=== PATIENT | female | born 2000 | race Caucasian/White ===

== ENCOUNTER 2021-05-06 18:20 | Emergency (ER) | payer OTHER ==
[2021-05-06 18:30] VITALS: BP 157/96; PULSE 116; RESP 18; TEMP 98.1
--- NOTE | 2021-05-06 18:40 | ED ---
General Adult HPI - General Chief complaint: Burn/Smoke Inhalation Stated complaint: IHS-Burned Rt Foot Time Seen by Provider: 05/06/21 18:30 Source: patient, RN notes reviewed, old records reviewed Mode of arrival: ambulatory Limitations: no limitations - History of Present Illness Initial comments: This is a 21-year-old female presents emergency Department complaining of a burn to the dorsum surface of her foot and she also states she has a small blister there. Patient states she spilled some hot soup at work on her foot. Patient states there is no other area of burn except for the area she showed me which is approximately 1 cm in diameter. Patient denies wanting any pain medications. Patient has no other complaints at this time. She states she doesn't want to be here but work made her come. - Related Data Home Medications Medication Instructions Recorded Confirmed Albuterol Inhaler (Mhu) [Ventolin 2 puff INHALATION Q4HR PRN 05/08/14 09/25/15 Inhaler] Montelukast Chew [Singulair] 5 mg PO DAILY 05/08/14 09/25/15 Allergies Allergy/AdvReac Type Severity Reaction Status Date / Time No Known Allergies Allergy Verified 05/06/21 18:28 Review of Systems ROS Statement: Those systems with pertinent positive or pertinent negative responses have been documented in the HPI. ROS Other: All systems not noted in ROS Statement are negative. Past Medical History Past Medical History: Asthma History of Any Multi-Drug Resistant Organisms: None Reported Past Surgical History: No Surgical Hx Reported Additional Past Surgical History / Comment(s): [place] teeth Past Psychological History: No Psychological Hx Reported Smoking Status: Never smoker Past Alcohol Use History: None Reported Past Drug Use History: None Reported General Exam - General Exam Comments Initial Comments: GENERAL Patient is well-developed and well-nourished. Patient is in mild distress. EYES Patient's pupils are equal and round. Extraocular motion is intact SKIN Patient has a small blister between the second and third toe with some surrounding erythema the blister measures about 1 cm in diameter. NEURO The patient is alert and oriented 3 PYSCH Patient has normal interpersonal interactions. MUSCULOSKELETAL All 4 extremities and full range of motion Limitations: no limitations Course Vital Signs 05/06/21 18:29 Temperature 98.1 F Pulse Rate 116 H Respiratory 18 Rate Blood Pressure 157/96 O2 Sat by Pulse 98 Oximetry Disposition Clinical Impression: Burn, foot, second degree Disposition: HOME SELF-CARE Condition: Good Instructions (If sedation given, give patient instructions): Second Degree Burn (ED) Additional Instructions: If the blister ruptures the patient complains some antibacterial ointment on the open wound. Patient take Motrin when necessary for pain Is patient prescribed a controlled substance at d/c from ED?: No Referrals: Cuong Lema Jr, [Primary Care Provider] - 1-2 days Time of Disposition: 18:40
== END 2021-05-06 18:51 | disposition home or self-care (01) ==
LOC: EC 18:20
DX: T25.221A Burn of second degree of right foot, initial encounter (principal); J45.909 Unspecified asthma, uncomplicated; Z79.51 Long term (current) use of inhaled steroids; X10.0XXA Contact with hot drinks, initial encounter
CPT/HCPCS: 99283

== ENCOUNTER 2023-03-27 09:41 | Outpatient (CLI) | payer SELFPAY ==
[2023-03-27 11:18] VITALS: BP 140/65; PULSE 115; RESP 16; TEMP 98.4
--- NOTE | 2023-04-13 18:11 | P.MSEPDOC ---
Presenting Problems - Arrival Data Date of Arrival on Unit: 03/27/23 Time of Arrival on Unit: 09:41 Mode of Transport: Ambulatory - Complaint OB-Reason for Admission/Chief Complaint: Rule Out SROM Comment: started leaking watery green fluid in night . conserned. didnt wear pad in none seen Medical History - Information : 1 Para: 0 Term: 0 : 0 Abortions: Spontaneous or Elective: 0 Number of Living Children: 0 - Gestational Age Gestational Age by OSMANI (wks/days): 21 Weeks and 6 Days Review of Systems - Review of Systems Constitutional: No problems Breast: No problems ENT: No problems Cardiovascular: No problems Respiratory: No problems Gastrointestinal: No problems Genitourinary: No problems Musculoskeletal: No problems Neurological: No problems Skin: No problems Vital Signs - Temperature Temperature: 98.4 F Temperature Source: Temporal Artery Scan - Pulse Right Radial Pulse Rate: 115 Pulse Assessment Method: Automatic Cuff - Respirations Respiratory Rate: 16 Oxygen Delivery Method: Room Air O2 Sat by Pulse Oximetry: 99 - Blood Pressure Right Arm Blood Pressure: 140/65 Blood Pressure Mean: 90 Blood Pressure Source: Automatic Cuff Medical Screen Scoring - Cervical Exam Membranes: Intact - Uterine Contractions Intensity: Absent Resting: Soft to palpation - Assessment - Baby A Baseline FHR: 150 Heart Rate - NICHD Category: Category I (Normal) Physician Notification - Physician Notified Physician Notified Date: 03/27/23 Physician Notified Time: 10:30 Physician: Kiarra Latif New Order Received: Yes (may discharge home with instructions and followup visit) Maternal Triage Index - Non-Urgent/Priority 4 Non-Urgent Priority 4: Yes Criteria Met for Priority 4: 21 6/7 weeks . ? srom in night. neg amnisure. no contx palpated or seen . no leaking fluid seen. denies other complications with preg. Disposition - Disposition OB Disposition: Discharge to home, Written follow up instructions reviewed Discharge Date: 03/27/23 Discharge Time: 11:00 I agree with the RN Medical Screening Exam: Yes Case reviewed; plan agreed upon as documented in EMR&OBIX.: Yes Diagnosis: RELATED CONDITIONS, UNSPECIFIED, SECOND TRIMESTER
== END 2023-03-27 11:00 | disposition home or self-care (01) ==
LOC: FBPOP 09:41
PROVIDERS: ATTEND Obstetrics & Gynecology Obstetrics
DX: O26.892 Other specified pregnancy related conditions, second trimester (principal); Z3A.21 21 weeks gestation of pregnancy
CPT/HCPCS: 99213

== ENCOUNTER → 2023-06-12 | Outpatient (CLI) | payer OTHER ==
[2023-06-12 22:25] VITALS: BP 136/63; PULSE 122; RESP 16; TEMP 98.6
--- NOTE | 2023-06-14 16:34 | P.MSEPDOC ---
Presenting Problems - Arrival Data Date of Arrival on Unit: 06/12/23 Time of Arrival on Unit: 20:07 Mode of Transport: Ambulatory - Complaint OB-Reason for Admission/Chief Complaint: Decreased Movement Comment: Patient arrived to triage with complaints of yris since 11am 06/11/23 and decreased . movement since yesterday. Patient denies bleeding, sexual intercourse, leaking of. fluid. Medical History - Information : 1 Para: 0 Term: 0 : 0 Abortions: Spontaneous or Elective: 0 Number of Living Children: 0 - Gestational Age Gestational Age by OSMANI (wks/days): 32 Weeks and 6 Days - History Comment: Patient denies Review of Systems - Review of Systems Constitutional: No problems Breast: No problems ENT: No problems Cardiovascular: No problems Respiratory: No problems Gastrointestinal: No problems Genitourinary: No problems Musculoskeletal: No problems Neurological: No problems Skin: Rash, Itching Comment: Patient has uticaria in between digits on left and right hands, patient has uticaria on both feet between digits. Vital Signs - Temperature Temperature: 98.6 F Temperature Source: Temporal Artery Scan - Pulse Pulse Oximetery Pulse Rate: 122 Pulse Assessment Method: Pulse Oximetry - Respirations Respiratory Rate: 16 Oxygen Delivery Method: Room Air O2 Sat by Pulse Oximetry: 99 - Blood Pressure Right Arm Blood Pressure: 136/63 Blood Pressure Mean: 87 Blood Pressure Source: Automatic Cuff Medical Screen Scoring - Cervical Exam Dilation (cm): 0 - Uterine Contractions Frequency From (mins): 2 Frequency To (mins): 8 Duration From (seconds): 30 Duration To (seconds): 40 Intensity: Mild Resting: Soft to palpation - Assessment - Baby A Baseline FHR: 140 Heart Rate - NICHD Category: Category I (Normal) NST: Reactive Physician Notification - Physician Notified Physician Notified Date: 06/12/23 Physician Notified Time: 20:40 Physician: Kiarra Latif New Order Received: Yes - Notification Comment Comment: Report Given To OB Care Provider: RN spoke with Dr. Latif via telephone regarding. patient, Dr. Latif aware of staus, FHR cat 1, contractions, yellow, white. discharge while RN with cervical exam. Patient treated for BV and yeast infection in. April of 2023 but didnt not finish full course of antibiotics or cream. FFN. collected but not sent. Orders to oral hydrate patient, recheck cervix in 1 hour and. send home if same and patient to call office Tuesday. Maternal Triage Index - Urgent/Priority 2 Urgent Priority 2: Yes Provider Notified: Kiarra Latif Provider Notified Time: 20:40 Criteria Met for Priority 2: Report Given To OB Care Provider: RN spoke with Dr. Latif via telephone regarding. patient, Dr. Latif aware of staus, FHR cat 1, contractions, yellow, white. discharge while RN with cervical exam. Patient treated for BV and yeast infection in. April of 2023 but didnt not finish full course of antibiotics or cream. FFN. collected but not sent. Orders to oral hydrate patient, recheck cervix in 1 hour and. send home if same and patient to call office Tuesday. Disposition - Disposition OB Disposition: Discharge to home Discharge Date: 06/12/23 Discharge Time: 21:43 I agree with the RN Medical Screening Exam: Yes Case reviewed; plan agreed upon as documented in EMR&OBIX.: Yes Diagnosis: RELATED CONDITIONS, UNSPECIFIED, THIRD TRIMESTER
== END ==
LOC: FBPOP 20:07
PROVIDERS: ATTEND Obstetrics & Gynecology Obstetrics
DX: O36.8131 Decreased fetal movements, third trimester, fetus 1 (principal); Z3A.32 32 weeks gestation of pregnancy
CPT/HCPCS: 59025; 99213

== ENCOUNTER 2023-06-21 19:14 | Outpatient (CLI) | payer OTHER ==
[2023-06-21 21:35] VITALS: BP 131/63; PULSE 112; RESP 16; TEMP 98.4
--- NOTE | 2023-07-02 09:56 | P.MSEPDOC ---
Presenting Problems - Arrival Data Date of Arrival on Unit: 06/21/23 Time of Arrival on Unit: 19:14 Mode of Transport: Ambulatory - Complaint OB-Reason for Admission/Chief Complaint: Other Comment: Pt presents to triage with complaints of swelling and rash on bilateral ankles/feet and hands. Medical History - Information : 1 Para: 0 Term: 0 : 0 Abortions: Spontaneous or Elective: 0 Number of Living Children: 0 - Gestational Age Gestational Age by OSMANI (wks/days): 34 Weeks and 1 Days Review of Systems - Review of Systems Constitutional: No problems Breast: No problems ENT: No problems Cardiovascular: No problems Respiratory: No problems Gastrointestinal: No problems Genitourinary: No problems Musculoskeletal: No problems Neurological: No problems Skin: Rash Comment: Pt's bilateral ankles and feet are red with scratches from itching with small pustules. Pt also has redness on the sides of her hands and in between her fingers. Pt states rash and itching began two weeks ago. Pt does not have a rash on her abdomen, only a few red stretch hidalgo on both sides, which pt states have been there for awhile Vital Signs - Temperature Temperature: 98.4 F Temperature Source: Oral - Pulse Pulse Oximetery Pulse Rate: 112 Pulse Assessment Method: Pulse Oximetry - Respirations Respiratory Rate: 16 Oxygen Delivery Method: Room Air O2 Sat by Pulse Oximetry: 97 - Blood Pressure Right Arm Blood Pressure: 131/63 Blood Pressure Mean: 85 Blood Pressure Source: Automatic Cuff Medical Screen Scoring - Uterine Contractions Resting: Soft to palpation - Assessment - Baby A Baseline FHR: 145 Heart Rate - NICHD Category: Category I (Normal) NST: Reactive Physician Notification - Physician Notified Physician Notified Date: 06/21/23 Physician Notified Time: 19:53 Physician: Tanvi Buck Order Received: Yes - Notification Comment Comment: At 1953, RN spoke with Dr. Buck regarding triage pt c/o rash on bilateral feet/ankles and hands that she has had for two weeks with no relief. Reported pt was seen in triage two weeks ago for DFM and rash was noticed by RN, who had pt follow up with Dr. Wong in the office for lab work. Reported per the pt, all lab work came back normal, pt denies any changes in laundry detergent, lotions, no gardening/outside work, and per Kj at [facility], pt was advised to try epsom salt soaks as well as benadryl, which pt states has not helped at all. Additionally, reported pt's vital signs are all WNL. Per Dr. Buck, she will look up pt's chart/lab work done at the office and will give RN a call back to determine POC. At 2010, Dr. Buck phoned into unit to update RN on pt's chart/lab work. RN reported reactive NST and irregular contx that pt is not feeling, as well as vital signs WNL. Dr. Buck states that she is going to call in a PO steroid to [facility] on [address] for pt to bean picker machine operator, as well as RN to instruct pt to bean picker machine operator eucerin cream, oral benadryl and an anti histamine like zyrtec. RN to educate pt everything is safe for baby. RN also reported pt has an appt with Dr. Wong on . Order received for pt to discharge pt. Maternal Triage Index - Maternal Triage Index Presenting for scheduled procedure w/no complaint: No - Stat/Priority 1 Stat Priority 1: No - Urgent/Priority 2 Urgent Priority 2: No - Prompt/Priority 3 Prompt Priority 3: No - Non-Urgent/Priority 4 Non-Urgent Priority 4: Yes Criteria Met for Priority 4: Non-urgent symptoms - rash on bilateral feet/ankles and hands Disposition - Disposition OB Disposition: Discharge to home, Written follow up instructions reviewed Discharge Date: 06/21/23 Discharge Time: 20:20 I agree with the RN Medical Screening Exam: Yes Case reviewed; plan agreed upon as documented in EMR&OBIX.: Yes Diagnosis: rash in
== END 2023-06-21 20:20 | disposition home or self-care (01) ==
LOC: FBPOP 19:14
PROVIDERS: ATTEND Obstetrics & Gynecology
DX: O99.713 Diseases of the skin and subcutaneous tissue complicating pregnancy, third trimester (principal); R21 Rash and other nonspecific skin eruption; Z3A.34 34 weeks gestation of pregnancy
CPT/HCPCS: 59025; 99213

== ENCOUNTER 2023-07-25 05:52 | Inpatient (IN) | payer OTHER ==
[2023-07-25] MEDS ORDERED: OXYTOCIN 10 UNIT/ML 1 ML VIAL IM PRN (06:20)
[2023-07-25] MEDS ORDERED: TRANEXAMIC 1,000 MG/100ML-NACL 1,000 MG in EMPTY BAG 1 BAG IV PRN (06:20)
[2023-07-25] MEDS ORDERED: miSOPROStoL 200 MCG TAB PO PRN (06:20)
[2023-07-25] MEDS ORDERED: METHYLERGONOVINE 0.2 MG/ML 1 ML AMP IM PRN (06:20)
[2023-07-25] MEDS ORDERED: CARBOPROST TROMETHAMINE 250 MCG/ML 1 ML AMP IM PRN (06:20)
[2023-07-25 06:30] LABS: Basophils % (A) 0 %; Eosinophils # (A) 0.1 k/uL (0-0.7); Eosinophils % (A) 1 %; HCT 33.4 % (34.0-46.0); HGB 11.1 gm/dL (11.4-16.0); Hypochromasia Slight; Lymphocytes # (A) 2.1 k/uL (1.0-4.8); Lymphocytes % (A) 23 %; MCH 26.2 pg (25.0-35.0); MCHC 33.3 g/dL (31.0-37.0); MCV 78.7 fL (80.0-100.0); Mean Platelet Volume 11.1; Monocytes # (A) 0.5 k/uL (0-1.0); Monocytes % (A) 6 %; Neutrophils # (A) 6.2 k/uL (1.3-7.7); Neutrophils % (A) 68 %; Platelet Count 199 k/uL (150-450); RBC 4.24 m/uL (3.80-5.40); RDW 14.8 % (11.5-15.5); WBC 9.2 k/uL (3.8-10.6)
[2023-07-25] MEDS ORDERED: OXYTOCIN 30 UNITS/500 ML NS 30 UNIT in SALINE 1 500ML.BAG IV SCH (06:30)
[2023-07-25] MEDS ORDERED: ceFAZolin 3 GM in SODIUM CHLORIDE 0.9% 100 ML IVPB ONE (06:30)
[2023-07-25] MEDS ORDERED: CITRIC ACID-SODIUM CITRATE 15 ML CUP PO ONE (06:30)
[2023-07-25] MEDS ORDERED: OXYTOCIN 30 UNITS/500 ML NS BAG IV ONE (08:01)
[2023-07-25] MEDS ORDERED: ONDANSETRON 4 MG/2 ML VIAL ONE (08:01)
[2023-07-25] MEDS ORDERED: MORPHINE SULFATE (PF) 0.3 MG/0.3 ML SYR ONE (08:01)
[2023-07-25] MEDS ORDERED: KETOROLAC 15 MG/ML 1 ML VIAL ONE (08:01)
[2023-07-25] MEDS ORDERED: NALOXONE 0.4 MG/ML 1 ML VIAL IV PRN ×2 (08:40→09:46)
[2023-07-25] MEDS ORDERED: diphenhydrAMINE 50 MG/ML 1 ML VIAL IVP PRN ×3 (08:40→09:46)
[2023-07-25] MEDS ORDERED: ONDANSETRON 4 MG/2 ML VIAL IVP PRN ×2 (08:40→09:46)
--- NOTE | 2023-07-25 08:48 | P.ANPRN ---
Procedure Note - Anesthesia - Epidural/Spinal Spinal Time Out Performed: Yes Date of Procedure: 07/25/23 Procedure Start Time: 08:00 Procedure Stop Time: 08:10 Location of Patient: OB Indication: Acute Post-Operative Pain (Bupivacaine 12 mg + Duramorph 300 microgram), Analgesia, Requested by Surgeon Sedation Type: Awake Preparation: Sterile Prep Position: Sitting Catheter: None Needle Guage: 22 Injectate: Spinal- Bupivacaine 12 mg +Duramorph 300 microgram Blood Aspirated: No Pain Paresthesia on Injection Noted: No Events: Other (see comment)
--- NOTE | 2023-07-25 09:16 | P.HPOB ---
History of Present Illness H&P Date: 07/25/23 Chief Complaint: Scheduled primary section Ms. Gould is a 23 year old at 39 weeks and 0 days with EDC of 08/01/2023 (by LMP consistent with 7 week US) who presents for schedule primary section for breech presentation. The has been complicated by excessive maternal weight gain of approximately 55 pounds. The fetus was estimated in the 37%ile for weight at the 32 week growth ultrasound. work-up: blood type O positive, antibody screen negative, rubella immune, VDRL non-reactive, HBsAg negative, HIV negative, gonorrhea negative, chlamydia negative, 1 hour GTT within normal limits, GBS positive. s/p TDap on 05/25/2023. Past Medical History Past Medical History: Asthma, GERD/Reflux, Skin Disorder Additional Past Medical History / Comment(s): eczema History of Any Multi-Drug Resistant Organisms: None Reported Past Surgical History: No Surgical Hx Reported Additional Past Surgical History / Comment(s): [place] teeth Past Anesthesia/Blood Transfusion Reactions: No Reported Reaction Past Psychological History: No Psychological Hx Reported Smoking Status: Never smoker Past Alcohol Use History: None Reported Past Drug Use History: None Reported - Past Family History Father History Unknown: Yes Additional Family Medical History / Comment(s): pt is adopted Medications and Allergies Home Medications Medication Instructions Recorded Confirmed Type Vit No.179/Iron/Folic 1 each PO HS 03/27/23 07/25/23 History [ Tablet] Ferrous Sulfate [Iron] 325 mg PO HS 06/21/23 07/25/23 History diphenhydrAMINE HCL [Benadryl] 25 mg PO HS 07/19/23 07/19/23 History Allergies Allergy/AdvReac Type Severity Reaction Status Date / Time No Known Allergies Allergy Verified 07/25/23 06:01 Exam Intake and Output 07/24/23 07/25/23 07/25/23 22:59 06:59 14:59 Other: Weight 122.47 kg Focused physical exam is performed. This is a healthy-appearing in no apparent distress. Breathing is non-labored. Abdomen is gravid and non-tender. Extremeties non-tender and non-edematous. heart tones are reactive and reassuring and tocometer is not graphing any contractions. Results Result Diagrams: 07/25/23 06:15 Abnormal Lab Results - Last 24 Hours (Table) 07/25/23 Range/Units 06:15 Hgb 11.1 L (11.4-16.0) gm/dL Hct 33.4 L (34.0-46.0) % MCV 78.7 L (80.0-100.0) fL Assessment and Plan Assessment: 23 year old at 39 weeks and days presenting for schedule primary section secondary to breech presentation Plan: Admit, NPO, mIVF, IV antibiotics, c/s protocol. Time with Patient: Less than 30
--- NOTE | 2023-07-25 09:27 | P.OP ---
Date of Procedure: 07/25/23 Preoperative Diagnosis: 1. Term IUP at 39 weeks 2. Malpresentation Postoperative Diagnosis: Same Procedure(s) Performed: Primary Lower Transverse Section Implants: None Anesthesia: spinal Surgeon: Arlet Wong Flying Teacher #1: Tanvi Buck Estimated Blood Loss (ml): 590 IV fluids (ml): 1,000 Urine output (ml): 200 (clear yellow) Pathology: none sent Condition: stable Disposition: floor Indications for Procedure: Ms. Gould is a 23 year old at 39 weeks gestation with a fetus in breech presentation. The patient was counseled on the options of external cephalic version or primary section. The risks, benefits, and alternatives to section were discussed with the patient including risk of bleeding, infection, damage to surrounding structures including bladder/bowels/ureters, and post-operative VTE. The patient understands these risks and desires to proceed with section. Operative Findings: Colorless amniotic fluid. Viable male weighing 8 pounds 12 ounces (3970 grams) in complete breech presentation with nuchal cord x2. Normal uterus, fallopian tubes, and ovaries. Description of Procedure: The patient was taken to the operating room where spinal anesthesia was found to be adequate. Two grams of Ancef were given for infection prophylaxis. She was prepared and draped in the dorsal supine position with a leftward tilt. A Pfannenstiel skin incision was made with the scalpel. The incision was carried down to the fascia with a bovie. The fascia was incised and extended laterally with Bennett scissors. The superior aspect of the fascia was grasped with Abimael clamps. The underlying rectus muscle was dissected off sharply with Bennett scissors. In a similar fashion, the inferior aspect of the fascia was elevated with Abimael clamps and the rectus muscle and pyramidalis were dissected off. Excellent hemostasis was achieved with the bovie. The rectus muscle was in the midline down to the level of the pubic symphysis. Pre- peritoneal fatty tissue was bluntly dissected to expose the peritoneum. The peritoneum was found to be free of adherent bowel and entered sharply with Bennett scissors. The peritoneal incision was extended superiorly and inferiorly to the bladder reflection with good visualization of the bladder. The bladder blade was inserted and vesicouterine peritoneum was identified. Intraabdominal survey revealed scant, clear peritoneal fluid and the thinned-out lower uterine segment. The bladder blade was repositioned to keep the bladder out of the operative field. The lower uterine segment was incised with a scalpel. The amniotic sac was ruptured with an Allis clamp and clear fluid was noted. The uterine incision was extended bluntly with lateral and upward traction. The fetus was in complete breech position. The buttocks was palpated and delivered gradually through the hysterotomy. Fundal pressure was continued and both legs were extended using the Pinard maneuver. With gentle pressure the legs and body gradually delivered. Once the scapula could be seen the baby was gently rotated and both arms were delivered using the Loveseat maneuver. Nuchal cord x2 were reduced. Maintaining head flexion in a modified Xixurakx-uuchuzw-quif maneuver the head was delivered without difficulty. The mouth and nose were suctioned with a bulb. The cord was clamped and cut. Infant was noted to be spontaneously crying. The infant was handed off to the care services manager. IV oxytocin was initiated to facilitate uterine contractions. The placenta was delivered intact with manual massage of uterine fundus. The uterus was then exteriorized and the inside of the uterus was gently wiped with a lap sponge to assure complete removal of placental membranes. The uterine incision was closed with a 0-Polysorb suture in a running locked fashion. A second imbricating layer of 0- Polysorb was placed along the incision. The ovaries and tubes were found to be normal. The uterus, tubes, and ovaries were then gently returned to the abdominal cavity. The blood clots and fluid were wiped out of the abdomen and pelvis with moist laparotomy sponges. The pelvis was copiously suction irrigated.The uterine incision was reinspected and excellent hemostasis was noted. The fascial layer was closed with a 0-Vicryl suture. The subcutaneous tissue was reapproximated with 2-0 Plain Gut. The skin was closed with 4-0 Monocryl in a subcuticular fashion. The patient tolerated the procedure well. All the counts were correct times two. The patient was taken to the recovery room in a stable condition.
[2023-07-25] MEDS ORDERED: KETOROLAC 15 MG/ML 1 ML VIAL IVP STA (09:45)
[2023-07-25] MEDS ORDERED: METOCLOPRAMIDE 5 MG/ML 2 ML VIAL IVP PRN (09:46)
[2023-07-25] MEDS ORDERED: diphenhydrAMINE 25 MG CAP PO PRN (09:46)
[2023-07-25] MEDS ORDERED: diphenhydrAMINE 50 MG CAP PO PRN (09:46)
[2023-07-25] MEDS ORDERED: ZOLPIDEM 5 MG TAB PO PRN (09:46)
[2023-07-25] MEDS: KETOROLAC 15 MG/ML 1 ML VIAL IVP SCH ×2 (17:15→23:53)
[2023-07-25] MEDS: LACTATED RINGERS 1,000 ML IV SCH ×2 (17:17→23:53)
[2023-07-25] MEDS: ACETAMINOPHEN TAB 500 MG TAB PO SCH (19:44)
[2023-07-25] MEDS: SENNOSIDES-DOCUSATE SODIUM 1 EACH TAB PO SCH (19:44)
[2023-07-26] MEDS: ACETAMINOPHEN TAB 500 MG TAB PO SCH ×4 (02:14→19:35)
[2023-07-26] MEDS: IBUPROFEN 600 MG TAB PO SCH ×4 (02:15→16:54)
[2023-07-26] MEDS: KETOROLAC 15 MG/ML 1 ML VIAL IVP SCH ×2 (05:51→13:55)
[2023-07-26] MEDS: LACTATED RINGERS 1,000 ML IV SCH (05:51)
[2023-07-26 06:51] LABS: Basophils % (A) 0 %; Eosinophils # (A) 0.1 k/uL (0-0.7); Eosinophils % (A) 1 %; Hypochromasia Slight; Lymphocytes # (A) 1.8 k/uL (1.0-4.8); Lymphocytes % (A) 18 %; MCH 25.9 pg (25.0-35.0); MCHC 32.5 g/dL (31.0-37.0); MCV 79.7 fL (80.0-100.0); Mean Platelet Volume 11.7; Monocytes # (A) 0.5 k/uL (0-1.0); Monocytes % (A) 5 %; Neutrophils # (A) 7.7 k/uL (1.3-7.7); Neutrophils % (A) 75 %; Platelet Count 167 k/uL (150-450); RBC 3.52 m/uL (3.80-5.40); WBC 10.3 k/uL (3.8-10.6)
[2023-07-26 08:08] LABS: HGB 9.1 gm/dL (11.4-16.0)
[2023-07-26] MEDS: SENNOSIDES-DOCUSATE SODIUM 1 EACH TAB PO SCH ×2 (08:30→22:37)
--- NOTE | 2023-07-26 08:31 | P.PNOBGPC ---
Subjective - Subjective Principal diagnosis: s/p primary section Interval history: The patient is doing well this morning and had no acute events overnight. She complains of a headache this morning. She reports moderate lochia, passing flatus, voiding without difficulty, ambulating, and eating/drinking without nausea or vomiting. She is and formula feeding her without difficulty. She denies chest pain, shortness of breathing, fevers, or chills overnight. She denies pain or swelling in the legs. Patient reports: Reports appetite normal, Reports voiding normally, Reports pain well controlled, Reports ambulating normally : doing well, nursing well Objective - Vital Signs Latest vital signs: Vital Signs Temp Pulse Resp BP Pulse Ox 07/26/23 04:00 98.6 F 81 16 116/75 07/26/23 00:00 97.8 F 80 16 128/83 99 07/25/23 21:00 16 98 07/25/23 20:00 97.8 F 80 16 126/79 07/25/23 18:01 16 99 07/25/23 17:00 16 99 07/25/23 15:00 98.6 F 110 H 16 129/57 98 07/25/23 13:00 16 07/25/23 12:00 89 16 122/65 100 07/25/23 11:40 16 100 07/25/23 11:20 97.2 F L 87 16 123/65 100 07/25/23 10:50 95 16 115/58 100 07/25/23 10:15 87 16 124/64 100 07/25/23 10:00 86 16 121/60 100 07/25/23 09:45 101 H 16 123/75 99 07/25/23 09:40 16 100 07/25/23 09:30 86 16 123/69 97 07/25/23 09:15 97.0 F L 96 16 122/67 97 Intake and Output 07/25/23 07/26/23 07/26/23 22:59 06:59 14:59 Output Total 1330 1200 Balance -1330 -1200 Output: Urine 1300 1200 Straight 300 Output, Quantitative 30 Blood Loss - Exam Extremities: Present: normal Abdomen: Present: normal appearance, soft Incision: Present: normal, dry, intact Uterus: Present: normal, firm - Labs Labs: Abnormal Lab Results - Last 24 Hours (Table) 07/26/23 Range/Units 06:20 RBC 3.52 L (3.80-5.40) m/uL Hgb 9.1 L D (11.4-16.0) gm/dL Hct 28.0 L (34.0-46.0) % MCV 79.7 L (80.0-100.0) fL Assessment and Plan Assessment: 23 year old now POD#1 s/p 1 LTCS 2/2 breech presentation Plan: 1. Postoperative. Patient meeting all postoperative milestones. 2. Viable male . Doing well at bedside. Will perform circumcision today. Dispo: Anticipate discharge home tomorrow.
[2023-07-26] MEDS ORDERED: CAFFEINE-SODIUM BENZOATE 500 MG in SODIUM CHLORIDE 0.9% 1,000 ML IVPB ONE ×2 (11:00→21:57)
--- NOTE | 2023-07-26 11:41 | P.PN ---
Progress Note - Text 07/26/23 622am 31-year-old female status post with spinal Duramorph. Patient seen and evaluated for postop pain control, she has a VAS of 2 , she does have neck stiffness and a headache which could be from spinal. Patient instructed to drink fluid and caffeinated drinks. IV caffeine ordered to alleviate the symptoms. Patient will she be treated conservatively for now.
[2023-07-26] MEDS ORDERED: HYDROcodone/APAP 7.5-325MG 1 EACH TAB PO PRN (21:55)
[2023-07-26] MEDS ORDERED: KETOROLAC 15 MG/ML 1 ML VIAL IVP SCH (22:00)
[2023-07-27] MEDS ORDERED: HYDROmorphone 0.5 MG/0.5 ML SYRINGE IVP PRN (00:11)
--- NOTE | 2023-07-27 01:15 | P.HPIM ---
History of Present Illness H&P Date: 07/27/23 Patient is status post a C section under spinal anesthesia and patient complaining of severe positional headache, which is not resolved with the conservative treatment with IV hydration and IV caffeine, and Toradol, patient reported intensity of the headache is 10 over 10, there is no fever. Past Medical History Past Medical History: Asthma, GERD/Reflux, Skin Disorder Additional Past Medical History / Comment(s): eczema History of Any Multi-Drug Resistant Organisms: None Reported Past Surgical History: No Surgical Hx Reported Additional Past Surgical History / Comment(s): [place] teeth Past Anesthesia/Blood Transfusion Reactions: No Reported Reaction Past Psychological History: No Psychological Hx Reported Smoking Status: Never smoker Past Alcohol Use History: None Reported Past Drug Use History: None Reported - Past Family History Father History Unknown: Yes Additional Family Medical History / Comment(s): pt is adopted Medications and Allergies Home Medications Medication Instructions Recorded Confirmed Type Vit No.179/Iron/Folic 1 each PO HS 03/27/23 07/25/23 History [ Tablet] Ferrous Sulfate [Iron] 325 mg PO HS 06/21/23 07/25/23 History diphenhydrAMINE HCL [Benadryl] 25 mg PO HS 07/19/23 07/19/23 History Allergies Allergy/AdvReac Type Severity Reaction Status Date / Time No Known Allergies Allergy Verified 07/25/23 06:01 Physical Exam Vitals: Vital Signs Temp Pulse Resp BP Pulse Ox 07/26/23 23:51 97.9 F 107 H 17 130/74 98 07/26/23 16:00 97.9 F 100 16 116/62 07/26/23 08:41 97.8 F 83 17 121/79 100 07/26/23 04:00 98.6 F 81 16 116/75 Intake and Output 07/26/23 07/26/23 07/27/23 14:59 22:59 06:59 Output Total 800 Balance -800 Output: Urine 800 Other: # Voids 1 Physical Examinations : -Constitutiona : Cooperative , not in acute distress . -HEENT : nech : supple , no Lymphadenopathy , normal thyroid size . : eyes : no ptosis , no icterus, no photophobia . - neurologic : Cranial nerve II to XII intact , no focal neurological deffecit . -psychatric : alert , oriented X 3 , appropriate affect , intact judgment and insight . -Lymphatic : no Lymphadenopathy . Results CBC & Chem 7: 07/26/23 06:20 Labs: Abnormal Lab Results - Last 24 Hours (Table) 07/26/23 Range/Units 06:20 RBC 3.52 L (3.80-5.40) m/uL Hgb 9.1 L D (11.4-16.0) gm/dL Hct 28.0 L (34.0-46.0) % MCV 79.7 L (80.0-100.0) fL Thrombosis Risk Factor Assmnt - Choose All That Apply Each Factor Represents 1 point: Obesity (BMI >25), or Other Risk Factors: No Each Risk Factor Represents 2 Points: Major surgery Thrombosis Risk Factor Assessment Total Risk Factor Score: 4 Thrombosis Risk Factor Assessment Level: Moderate Risk Assessment and Plan Assessment: Assessment and plan=1-post dural puncture headache. Patient failed conservative treatment ,will proceed with the epidural blood patch Time with Patient: Less than 30
--- NOTE | 2023-07-27 01:18 | P.PCN ---
Date of Procedure: 07/27/23 Procedure(s) Performed: Procedure= lumbar epidural blood patch. Preoperative diagnosis= postdural puncture headache. Postoperative diagnoses= post dural puncture headache. Indication for the procedure= patient developed headache after spinal anesthesia which was done for ,headache persists in spite of conservative treatment, there is no focal neurological deficit, no fever, headache worse with sitting and standing position, and improved with lying supine, for this reason patient is a good candidate for epidural blood patch. anesthesia= local infiltration with lidocaine 1% 3 mL. Complications= none. Description of the procedure= patient identified risks and benefits of the procedure explained to the patient and patient agreed with proceeding, Back lumbar area prepped with chlorhexidine 3 times, then drape applied the local infiltration of the skin and subcutaneous tissue with lidocaine 1% 3 mL at L4-5 interlaminar space then 18-gauge Tuohy needle advanced slowly at L4-5 interlaminar space, There was positive loss of resistance to normal saline, no heme no paresthesia no cerebrospinal fluid, then after that 20 ML of the blood taken from the patient under strict sterile technique, and after the left antecubital area prepped with a chlorhexidine 3 times using 18 -gauge Angiocath, and under sterile technique the 20 ML of the block taken from the patient injected in the epidural space after negative aspiration for heme or CSF and there was no paresthesia then the needle removed intact the skin cleaned and the , bandage applied .
[2023-07-27] MEDS: ACETAMINOPHEN TAB 500 MG TAB PO SCH ×2 (01:49→12:03)
[2023-07-27 09:07] VITALS: BP 121/75; PULSE 110; RESP 18; TEMP 98
[2023-07-27] MEDS: IBUPROFEN 600 MG TAB PO SCH (09:14)
[2023-07-27] MEDS: SENNOSIDES-DOCUSATE SODIUM 1 EACH TAB PO SCH (09:14)
--- NOTE | 2023-07-27 09:21 | P.DS ---
Providers Date of admission: 07/25/23 05:52 Expected date of discharge: 07/27/23 Attending physician: Arlet Wong MD Primary care physician: [place] [facility] Course: Ms. Gould is a 23 year old now POD#2 s/p primary section secondary to breech presentation. The patient is doing well this morning and desires discharge home. She did require a blood patch yesterday with anesthesia for a spinal headache. Headache has now resolved and she feels much better. The patient is doing well this morning and had no acute events overnight. She has no complaints this morning. She reports minimal lochia, passing flatus, voiding without difficulty, ambulating, and eating/drinking without nausea or vomiting. doing well at bedside, s/p circumcision. She denies chest pain, shortness of breathing, fevers, or chills overnight. She denies pain or swelling in the legs. Postoperative restrictions are reviewed with the patient including pelvic rest for 6 weeks, no lifting heavier than 15 pounds for 6 weeks. The patient is encouraged to call the office if she experiences any heavy bleeding, foul-smelling discharge, breast complaints, or any if she has any other concerns. She will follow up in the office with in 2 weeks for postoperative exam. She will go home with Motrin, Tylenol, and a 3-day supply of Oxycodone 5mg. All questions are answered. Assessment: 23 year old POD#2 s/p 1 c/s Patient Condition at Discharge: Good Plan - Discharge Summary Discharge Rx Participant: Yes New Discharge Prescriptions: New Ibuprofen [Motrin] 600 mg PO Q6HR PRN #30 tab PRN Reason: Mild Pain (Scale 1 To 3) oxyCODONE HCL [Roxicodone] 5 mg PO Q6HR PRN 3 Days #12 tab PRN Reason: Breakthrough Pain Acetaminophen Tab [Tylenol] 650 mg PO Q6H PRN #30 tab PRN Reason: Mild Pain (Scale 1 To 3) No Action diphenhydrAMINE HCL [Benadryl] 25 mg PO HS Vit No.179/Iron/Folic [ Tablet] 1 each PO HS Ferrous Sulfate [Iron] 325 mg PO HS Discharge Medication List Vit No.179/Iron/Folic [ Tablet] 1 each PO HS 03/27/23 [History] Ferrous Sulfate [Iron] 325 mg PO HS 06/21/23 [History] diphenhydrAMINE HCL [Benadryl] 25 mg PO HS 07/19/23 [History] Acetaminophen Tab [Tylenol] 650 mg PO Q6H PRN #30 tab 07/27/23 [Rx] Ibuprofen [Motrin] 600 mg PO Q6HR PRN #30 tab 07/27/23 [Rx] oxyCODONE HCL [Roxicodone] 5 mg PO Q6HR PRN 3 Days #12 tab 07/27/23 [Rx] Follow up Appointment(s)/Referral(s): Arlet Wong MD [STAFF PHYSICIAN] - 2 Weeks Activity/Diet/Wound Care/Special Instructions: Instructions 1. Do not begin any exercise program for 3 weeks. 2. Do not resume sexual relations for 6 weeks or longer if uncomfortable. 3. You may take tub baths or showers at any time. 4. You may use tampons if desired after 6 weeks. 5. Keep any areas repaired with stitches clean and dry. 6. If you are not nursing, wear a good fitting, supportive bra during the day and limit fluid intake for at least 1 week to prevent breast engorgement. 7. Call the office, , within the next week to make appointment for your 6 week checkup if it has not already been made. 8. Report any of the following occurrences to the doctor promptly: a. Heavy, excessive bleeding b. Chills, fever c. Burning or frequency of urination d. Pain or redness and breasts if nursing e. Increasing pain or swelling of vulva (stitches). In addition to the above instructions, the following additional should be followed: 1. No heavy lifting or straining (exercising) until after 6 week checkup. 2. Keep abdominal incision clean and dry: You may wear a dressing if more comfortable. 3. Make office appointment for 2 weeks after delivery date. Discharge Disposition: HOME SELF-CARE
== END 2023-07-27 13:30 | disposition home or self-care (01) | DRG 788 ==
LOC: 4FBP 05:52
PROVIDERS: ADMIT Obstetrics & Gynecology; ATTEND Obstetrics & Gynecology
PROC: 10D00Z1 Extraction of Products of Conception, Low, Open Approach (ICD-10-PCS; principal; 2023-07-25 08:00)
PROC: 3E0R3GC Introduction of Other Therapeutic Substance into Spinal Canal, Percutaneous Approach (ICD-10-PCS; 2023-07-27)
DX: O32.1XX0 Maternal care for breech presentation, not applicable or unspecified (principal); J45.909 Unspecified asthma, uncomplicated; O26.03 Excessive weight gain in pregnancy, third trimester; O69.81X0 Labor and delivery complicated by cord around neck, without compression, not applicable or unspecified; O89.4 Spinal and epidural anesthesia-induced headache during the puerperium; O99.52 Diseases of the respiratory system complicating childbirth; O99.824 Streptococcus B carrier state complicating childbirth; Z37.0 Single live birth; Z3A.39 39 weeks gestation of pregnancy
CPT/HCPCS: 85025; 86850; 86900; 86901

== ENCOUNTER 2025-03-14 18:15 | Emergency (ER) | payer OTHER ==
--- NOTE | 2025-03-14 19:24 | ED ---
Neck Injury/Pain HPI - General Chief Complaint: Neck Pain/Injury Stated Complaint: swollen lymph nodes Time Seen by Provider: 03/14/25 18:34 Mode of arrival: ambulatory Limitations: no limitations - History of Present Illness Initial Comments: 25-year-old female presenting with chief complaint of swollen lymph nodes near the base of her skull. She reports that about 4 days ago after getting her hair done she was having a lot of itching near the back of her hairline. This lasted for about 2 days. Afterwards she noticed some swollen lymph nodes under the back of her neck. Patient states that she has had a lot of increased anxiety since having her son and is concerned about having cancer due to the enlarged lymph nodes. She reports very mild headache at times. No fever or chills. No cough, congestion, sore throat. No chest pain or difficulty breathing. No nausea vomiting or abdominal pain. No injury or trauma. - Related Data Home Medications Medication Instructions Recorded Confirmed Vit No.179/Iron/Folic 1 each PO HS 03/27/23 07/25/23 [ Tablet] Ferrous Sulfate [Iron] 325 mg PO HS 06/21/23 07/25/23 diphenhydrAMINE HCL [Benadryl] 25 mg PO HS 07/19/23 07/19/23 Previous Rx's Medication Instructions Recorded Acetaminophen Tab [Tylenol] 650 mg PO Q6H PRN #30 tab 07/27/23 Ibuprofen [Motrin] 600 mg PO Q6HR PRN #30 tab 07/27/23 oxyCODONE HCL [Roxicodone] 5 mg PO Q6HR PRN 3 Days #12 tab 07/27/23 Allergies Allergy/AdvReac Type Severity Reaction Status Date / Time No Known Allergies Allergy Verified 07/25/23 06:01 Review of Systems ROS Statement: Those systems with pertinent positive or pertinent negative responses have been documented in the HPI. ROS Other: All systems not noted in ROS Statement are negative. Past Medical History Past Medical History: Asthma, GERD/Reflux, Skin Disorder Additional Past Medical History / Comment(s): eczema History of Any Multi-Drug Resistant Organisms: None Reported Past Surgical History: No Surgical Hx Reported, Section, Cholecystectomy Additional Past Surgical History / Comment(s): [place] teeth Past Anesthesia/Blood Transfusion Reactions: No Reported Reaction Past Psychological History: No Psychological Hx Reported Smoking Status: Never smoker Past Alcohol Use History: None Reported Past Drug Use History: None Reported - Past Family History Father History Unknown: Yes Additional Family Medical History / Comment(s): pt is adopted General Exam Limitations: no limitations General appearance: alert, in no apparent distress Head exam: Present: atraumatic, normocephalic, normal inspection Eye exam: Present: normal appearance, EOMI. Absent: periorbital swelling Neck exam: Present: normal inspection, full ROM, lymphadenopathy. Absent: tenderness, meningismus Respiratory exam: Present: normal lung sounds bilaterally. Absent: respiratory distress, wheezes, rales, rhonchi, stridor Cardiovascular Exam: Present: regular rate, normal rhythm, normal heart sounds. Absent: systolic murmur, diastolic murmur, rubs, gallop, clicks Neurological exam: Present: alert, oriented X3 Psychiatric exam: Present: normal affect, normal mood Skin exam: Present: warm, dry, normal color Course Vital Signs 03/14/25 03/14/25 18:16 20:53 Temperature 98.2 F 98.5 F Pulse Rate 98 90 Respiratory 16 18 Rate Blood Pressure 136/82 119/77 O2 Sat by Pulse 100 99 Oximetry Medical Decision Making - Medical Decision Making Was pt. sent in by a medical professional or institution (, PA, CLINICAL PSYCHOLOGY TEACHER, urgent care, hospital, or shelter...) When possible be specific @ -No Did you speak to anyone other than the patient for history (EMS, parent, family, police, friend...)? What history was obtained from this source @ -No Did you review nursing and triage notes (agree or disagree)? Why? @ -I reviewed and agree with nursing and triage notes Were old charts reviewed (outside hosp., previous admission, EMS record, old EKG, old radiological studies, urgent care reports/EKG's, shelter records)? Report findings @ -No old charts were reviewed Differential Diagnosis (chest pain, altered mental status, abdominal pain women, abdominal pain men, vaginal bleeding, weakness, fever, dyspnea, syncope, headache, dizziness, GI bleed, back pain, seizure, CVA, palpatations, mental health, musculoskeletal)? @ -Differential includes reactive lymphadenopathy, cyst, abscess, mass, not an all-inclusive list EKG interpreted by me (3pts min.). @ -As above X-rays interpreted by me (1pt min.). @ -None done CT interpreted by me (1pt min.). @ -None done U/S interpreted by me (1pt. min.). @ -Ultrasound shows right posterior neck subcentimeter 0.7 x 0.5 x 0.5 cm anechoic lesion without internal color flow. The left posterior neck are 2 anechoic subcentimeter lesions with the largest measuring 0.5 x 0.4 x 0.7 cm. No internal color flow. All these lesions appear similar in appearance. Probably represent reactive lymph nodes versus other etiologies. This can be further evaluated with CT neck with IV contrast as clinically indicated What testing was considered but not performed or refused? (CT, X-rays, U/S, labs)? Why? @ -None What meds were considered but not given or refused? Why? @ -None Did you discuss the management of the patient with other professionals (professionals i.e. , PA, CLINICAL PSYCHOLOGY TEACHER, lab, RT, psych nurse, social work nurse, airport ramp supervisor, teacher, community chest officer, family caseworker)? Give summary @ -No Was smoking cessation discussed for >3mins.? @ -No Was critical care preformed (if so, how long)? @ -No Were there social determinants of health that impacted care today? How? (Homelessness, low income, unemployed, alcoholism, drug addiction, transportation, low edu. Level, literacy, decrease access to med. care, correction, rehab)? @ -No Was there de-escalation of care discussed even if they declined (Discuss DNR or withdrawal of care, Hospice)? DNR status @ -No What co-morbidities impacted this encounter? (DM, HTN, Smoking, COPD, CAD, Cancer, CVA, ARF, Chemo, Hep., AIDS, mental health diagnosis, sleep apnea, morbid obesity)? @ -None Was patient admitted / discharged? Hospital course, mention meds given and route, prescriptions, significant lab abnormalities, going to OR and other pertinent info. @ -25-year-old female presenting with chief complaint of swollen lymph nodes at the back of her neck. This was preceded by itching at the back of her hairline which she attributed to recently getting her hair done. History and physical examination are conducted. Small round mobile possibly slightly enlarged lymphadenopathy of the posterior cervical chain appreciated on exam. No other complaints. Hemoglobin 11.8, patient reports she has history of anemia. Negative heterophile. Negative for influenza, RSV, COVID, group A strep. Ultrasound shows evidence of most likely reactive lymph nodes. Patient is educated on today's findings. Follow-up with PCP. Report back to ER with any new or worsening symptoms. Discussed return parameters and answered all questions. Patient conveyed verbal understanding and agreed to the plan. I discussed this case in detail with my attending . Undiagnosed new problem with uncertain prognosis? @ -No Drug Therapy requiring intensive monitoring for toxicity (Heparin, Nitro, Insulin, Cardizem)? @ -No Were any procedures done? @ -No Diagnosis/symptom? @ -Lymphadenopathy Acute, or Chronic, or Acute on Chronic? @ -Acute Uncomplicated (without systemic symptoms) or Complicated (systemic symptoms)? @ -Uncomplicated Side effects of treatment? @ -No Exacerbation, Progression, or Severe Exacerbation? @ -No Poses a threat to life or bodily function? How? (Chest pain, [place], [place], pneumonia, PE, COPD, DKA, ARF, appy, cholecystitis, CVA, Diverticulitis, Homicidal, Suicidal, threat to staff... and all critical care pts) @ -Unlikely - Lab Data Result diagrams: 03/14/25 19:25 03/14/25 19:25 Lab Results 03/14/25 03/14/25 03/14/25 Range/Units 19:25 19:25 19:25 WBC 6.73 (4.50-10.00) 10*3/uL RBC 4.60 (4.10-5.20) 10*6/uL Hgb 11.8 L (12.0-15.0) g/dL Hct 37.1 L (37.2-46.3) % MCV 80.7 (80.0-97.0) fL MCH 25.7 L (27.0-32.0) pg MCHC 31.8 L (32.0-37.0) g/dL Plt Count 261 (140-440) 10*3/uL MPV 11.0 (9.5-12.2) fL Immature Gran % (Auto) 0.1 % Neutrophils % 57.5 % Lymphocytes % 31.9 % Monocytes % 6.7 % Eosinophils % 2.8 % Basophils % 1.0 % Immature Gran # 0.01 (0.00-0.04) 10*3/uL Neutrophils # 3.86 (1.80-7.70) 10*3/uL Lymphocytes # 2.15 (0.90-5.00) 10*3/uL Monocytes # 0.45 (0.20-1.00) 10*3/uL Eosinophils # 0.19 (0.04-0.35) 10*3/uL Basophils # 0.07 (0.00-0.10) 10*3/uL Sodium 140 (137-145) mmol/L Potassium 4.2 (3.5-5.1) mmol/L Chloride 104 (98-107) mmol/L Carbon Dioxide 27 (22-30) mmol/L Anion Gap 9 mmol/L BUN 13 (7-17) mg/dL Creatinine 0.63 (0.52-1.04) mg/dL Est GFR (CKD-EPI)AfAm >90 (>60 ml/min/1.73 sqM) Est GFR (CKD-EPI)NonAf >90 (>60 ml/min/1.73 sqM) Glucose 108 H (74-99) mg/dL Calcium 9.0 (8.4-10.2) mg/dL Total Bilirubin 0.5 (0.2-1.3) mg/dL AST 17 (14-36) U/L ALT 8 (4-34) U/L Alkaline Phosphatase 54 (38-126) U/L Total Protein 6.8 (6.3-8.2) g/dL Albumin 4.0 (3.5-5.0) g/dL Heterophile Antibody Negative (Negative) Influenza Type A (PCR) (Not Detectd) Influenza Type B (PCR) (Not Detectd) RSV (PCR) (Not Detectd) SARS-CoV-2 (PCR) (Not Detectd) Group A Strep (PCR) (Not Detectd) 03/14/25 03/14/25 Range/Units 19:25 19:25 WBC (4.50-10.00) 10*3/uL RBC (4.10-5.20) 10*6/uL Hgb (12.0-15.0) g/dL Hct (37.2-46.3) % MCV (80.0-97.0) fL MCH (27.0-32.0) pg MCHC (32.0-37.0) g/dL Plt Count (140-440) 10*3/uL MPV (9.5-12.2) fL Immature Gran % (Auto) % Neutrophils % % Lymphocytes % % Monocytes % % Eosinophils % % Basophils % % Immature Gran # (0.00-0.04) 10*3/uL Neutrophils # (1.80-7.70) 10*3/uL Lymphocytes # (0.90-5.00) 10*3/uL Monocytes # (0.20-1.00) 10*3/uL Eosinophils # (0.04-0.35) 10*3/uL Basophils # (0.00-0.10) 10*3/uL Sodium (137-145) mmol/L Potassium (3.5-5.1) mmol/L Chloride (98-107) mmol/L Carbon Dioxide (22-30) mmol/L Anion Gap mmol/L BUN (7-17) mg/dL Creatinine (0.52-1.04) mg/dL Est GFR (CKD-EPI)AfAm (>60 ml/min/1.73 sqM) Est GFR (CKD-EPI)NonAf (>60 ml/min/1.73 sqM) Glucose (74-99) mg/dL Calcium (8.4-10.2) mg/dL Total Bilirubin (0.2-1.3) mg/dL AST (14-36) U/L ALT (4-34) U/L Alkaline Phosphatase (38-126) U/L Total Protein (6.3-8.2) g/dL Albumin (3.5-5.0) g/dL Heterophile Antibody (Negative) Influenza Type A (PCR) Not Detected (Not Detectd) Influenza Type B (PCR) Not Detected (Not Detectd) RSV (PCR) Not Detected (Not Detectd) SARS-CoV-2 (PCR) Not Detected (Not Detectd) Group A Strep (PCR) NOT DETECTED (Not Detectd) Disposition Clinical Impression: Lymphadenopathy Disposition: HOME SELF-CARE Condition: Good Instructions (If sedation given, give patient instructions): Lymphadenopathy (ED) Additional Instructions: Follow-up with your PCP. Report back to ER with any new or worsening symptoms. Is patient prescribed a controlled substance at d/c from ED?: No Referrals: Cuong Lema Jr, DO [Primary Care Provider] - 1-2 days Time of Disposition: 20:31
[2025-03-14 19:30] LABS: Basophils # (A) 0.07 10*3/uL (0.00-0.10); Basophils % (A) 1.0 %; Eosinophils # (A) 0.19 10*3/uL (0.04-0.35); Eosinophils % (A) 2.8 %; HCT 37.1 % (37.2-46.3); HGB 11.8 g/dL (12.0-15.0); Lymphocytes # (A) 2.15 10*3/uL (0.90-5.00); Lymphocytes % (A) 31.9 %; MCH 25.7 pg (27.0-32.0); MCHC 31.8 g/dL (32.0-37.0); MCV 80.7 fL (80.0-97.0); Monocytes # (A) 0.45 10*3/uL (0.20-1.00); Monocytes % (A) 6.7 %; Neutrophils # (A) 3.86 10*3/uL (1.80-7.70); Neutrophils % (A) 57.5 %; Platelet Count 261 10*3/uL (140-440); RBC 4.60 10*6/uL (4.10-5.20); RDW 16.0 % (11.5-14.5); WBC 6.73 10*3/uL (4.50-10.00)
[2025-03-14 19:42] LABS: ALT 8 U/L (4-34); AST 17 U/L (14-36); African American GFR (CKD) >90 (>60 ml/min/1.73 sqM); Albumin 4.0 g/dL (3.5-5.0); Alkaline Phosphatase 54 U/L (38-126); Anion Gap 9 mmol/L; Blood Urea Nitrogen 13 mg/dL (7-17); Calcium 9.0 mg/dL (8.4-10.2); Carbon Dioxide 27 mmol/L (22-30); Chloride 104 mmol/L (98-107); Glucose 108 mg/dL (74-99); Non-African American GFR(CKD) >90 (>60 ml/min/1.73 sqM); Potassium 4.2 mmol/L (3.5-5.1); Sodium 140 mmol/L (137-145); Total Protein 6.8 g/dL (6.3-8.2)
--- NOTE | 2025-03-14 19:52 | US ---
EXAMINATION TYPE: US thyroid st tissue head/neck DATE OF EXAM: 03/14/2025 COMPARISON: NONE CLINICAL INDICATION: Female, 25 years old with history of swollen lymph nodes; patient has lumps on t he back of her neck near her hairline TECHNIQUE: Multiple grayscale and color ultrasound images of the patient's area of concern within the posterior neck were obtained. FINDINGS/IMPRESSION: In the right posterior neck is a subcentimeter 0.7 x 0.5 x 0.5 cm anechoic lesion without internal co ruy flow. In the left posterior neck are 2 anechoic subcentimeter lesions with the largest measuring 0.5 x 0.4 x 0.7 cm. No internal color flow. All these lesions appears similar in appearance. Probably represent reactive lymph nodes versus other etiologies. This can be further evaluated with CT neck with IV con trast as clinically indicated. [facility], , 03/14/2025 7:50 PM
[2025-03-14 20:06] LABS: RSV Not Detected (Not Detectd)
[2025-03-14 20:53] VITALS: BP 119/77; PULSE 90; RESP 18; TEMP 98.5
== END 2025-03-14 20:58 | disposition home or self-care (01) ==
LOC: EC 18:15
DX: R59.0 Localized enlarged lymph nodes (principal)
CPT/HCPCS: 36415; 76536; 80053; 85025; 86308; 87636; 87651; 99284